=== PATIENT | female | born 1960 | race Caucasian/White ===

== ENCOUNTER 2016-11-14 10:23 | Emergency (ER) | payer OTHER ==
[~2016-11-14] VITALS: Ht 182.9 cm; Wt 102.1 kg
[~2016-11-14 10:23] MED LIST: FLUO15CR2 TP; FOLI1TAB24 PO; INSU100V SQ; INSU100V6 SQ; METH2.5T PO; OXYB5TAB PO; TR1O15 TP
[2016-11-14 11:04] LABS: BASOPHILS % (AUTO) 1 % (0-10); EOSINOPHILS % (AUTO) 2 % (0-10); LYMPHOCYTES # (AUTO) 0.4 X 10^3 (1.0-4.0); LYMPHOCYTES % (AUTO) 21 % (12-44); MEAN CORPUSCULAR HEMOGLOBIN 29 PG (25-34); MEAN CORPUSCULAR HGB CONC 33 G/DL (32-36); MEAN CORPUSCULAR VOLUME 86 FL (80-99); MEAN PLATELET VOLUME 9.3 FL (7.4-10.4); MONOCYTES # (AUTO) 0.1 X 10^3 (0.0-1.0); MONOCYTES % (AUTO) 8 % (0-12); NEUTROPHILS # (AUTO) 1.1 X 10^3 (1.8-7.8); NEUTROPHILS % (AUTO) 68 % (42-75); PLATELET COUNT 52 10^3/uL (130-400); RED BLOOD COUNT 4.35 10^6/uL (4.35-5.85); RED CELL DISTRIBUTION WIDTH 14.4 % (10.0-14.5); WHITE BLOOD COUNT 1.7 10^3/uL (4.3-11.0)
[2016-11-14 11:16] LABS: INR 1.2 (0.8-1.4)
[2016-11-14 11:24] LABS: ALANINE AMINOTRANSFERASE 16 U/L (0-55); ALBUMIN 3.5 G/DL (3.2-4.5); ANION GAP 9 MMOL/L (5-14); ASPARTATE AMINO TRANSFERASE 26 U/L (5-34); BILIRUBIN,TOTAL 1.4 MG/DL (0.1-1.0); BLOOD UREA NITROGEN 9 MG/DL (7-18); BUN/CREATININE RATIO 10; CALCIUM 8.8 MG/DL (8.5-10.1); CARBON DIOXIDE 24 MMOL/L (21-32); CHLORIDE 110 MMOL/L (98-107); CREATININE SERUM 0.92 MG/DL (0.60-1.30); GFR ESTIMATED > 60; GLUCOSE 116 MG/DL (70-105); MAGNESIUM 1.9 MG/DL (1.8-2.4); POTASSIUM 3.6 MMOL/L (3.6-5.0); SODIUM 143 MMOL/L (135-145); TOTAL PROTEIN 6.5 G/DL (6.4-8.2)
[2016-11-14 11:43] LABS: MYOGLOBIN SERUM 43.7 NG/ML (10.0-92.0)
--- NOTE | 2016-11-14 12:08 | Diagnostic Imaging Report ---
EXAM: CHEST 1 VIEW, AP/PA ONLY INDICATION: Weakness. Fatigue. COMPARISON: Chest radiograph 01/06/2016. FINDINGS: Normal heart size and pulmonary vascularity. No focal pulmonary opacity, pleural effusion or pneumothorax. Osseous structures are unremarkable. No significant change. IMPRESSION: Negative chest. Dictated by: Dictated on workstation # [id number]
--- NOTE | 2016-11-14 12:19 | ED Cardiac General ---
History of Present Illness General Chief Complaint: Cardiac/General Problems Stated Complaint: INCREASED HEART RATE, DIZZY Nursing Triage Note: STATES SHE WOKE UP THIS AM WITH A HR OF 200. PT BROUGHT A SERVICE DOG WITH HER. History of Present Illness Time seen by provider: 12:06 Initial Comments Pt woke this morning feeling dizzy and like her heart was racing. She checked her pulse on her phone and she registered at 201 BPM. She has no Hx fo TX or tobacco use. She denies thyroid disorder. she denies alcohol use or COPD. she does have diabetes treated with long and short acting insulin but does not know her latest A1c other than it was high. She states she felt a little clammy and sweaty at the time her heart was racing this morning but it got better after she ate some cookies. She did not check her blood sugar. She has a glucometer. She lives with her children although her memory care physician is in [facility]. She says she is here due to a divorce recently and does have a PCP at [facility]. She denies any nausea or vomiting. She denies chest pain or pressure. She denies hypertension. She denies anyhistory of clots in herlegs or lungs. She also denies shortness of breath. she endorses a history of liver cirrhosis without any history of drinking, IV drug use, hepatitis saying she's recently been tested for this. She is in the middle of a workup for her idiopathic cirrhosis and recently had high bilirubin noted outpatient that was getting better. the patient reports she has chronic low platelets and asked what led to the workup of her liver after a bone marrow biopsy was normal. Her white count being low is also chronic. Allergies and Home Medications Allergies Coded Allergies: Penicillins (Unverified Adverse Reaction, Severe, 01/06/16) WAS TOLD TO NEVER TAKE IT AGAIN Tetanus Vaccines & Toxoid (Unverified Adverse Reaction, Severe, ANAPHYLACTIC REACTION, COULDN'T BREATH, BODY SWOLLEN, 01/06/16) meperidine (Unverified Adverse Reaction, Severe, ANAPHYLAXIS, 01/06/16) HEART STOPPED ET STOPPED BREATHING propofol (Unverified Adverse Reaction, Severe, 01/06/16) STATED TO ANESTHESIOLOGIST THAT HER HEAD WAS ABOUT TO EXPLODE Home Medications Fluocinonide/Emollient Base 15 Gm Cream..g., 15 GM TP, (Reported) Insulin Glargine,Hum.rec.anlog 100 Unit/1 Ml Vial, 180 UNIT SQ HS, (Reported) Insulin Lispro 100 Unit/1 Ml Vial, UNIT SQ, (Reported) Triamcinolone Acet 15 Gm Oint, 15 GM TP, (Reported) Review of Systems Constitutional: see HPI, No chills, No diaphoresis, No fever EENTM: No Eye Pain, No Ear Pain Respiratory: Denies Cough, Denies Shortness of Air, Denies SOA With Exertion, Denies SOA at Rest Cardiovascular: Denies Chest Pain, Denies Edema, Denies Irregular Heart Rate, Lightheadedness, Palpitations Gastrointestinal: Denies Abdomen Distended, Denies Constipated, Denies Diarrhea Genitourinary: Denies Burning, Denies Frequency, Denies Pain Musculoskeletal: No back pain, No joint pain Skin: lesions (psoriasis) Psychiatric/Neurological: See HPI (Bipolar D/O) Endocrine: Denies Excessive Sweating, Denies Flushing Hematologic/Lymphatic: Denies Anemia, Denies Blood Clots Past Mgcnkvs-Jzijnx-Trarmm Hx Patient Social History Alcohol Use: Denies Use Recreational Drug Use: No Smoking Status: Never a Smoker Recent Foreign Travel: No Contact w/Someone Who Travel: No Recent Infectious Disease Expo: No Recent Hopitalizations: No Immunizations Up To Date Tetanus Booster (TDap): Unknown Seasonal Allergies Seasonal Allergies: Yes Surgeries HX Surgeries: Yes (L-ARM (2 YEARS AGO) SURGERY, HEMORHOID, INCONTENENCE) Surgeries: Bladder Surgery, Section, Gallbladder, Hysterectomy Respiratory Hx Respiratory Disorders: Yes Respiratory Disorders: Sleep Apnea Cardiovascular Hx Cardiac Disorders: Yes Cardiac Disorders: Hypertension Neurological Neurological Disorders: Headaches /Migraines 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 System Hx 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 Disorders: Yes [employer] History: Hysterectomy Genitourinary Hx Genitourinary Disorders: Yes (INCONTENENCE) Gastrointestinal Hx Gastrointestinal Disorders: Yes Gastrointestinal Disorders: Gastroesophageal Reflux, Hemorrhoids, Cirrhosis Musculoskeletal Hx Musculoskeletal Disorders: Yes Musculoskeletal Disorders: Arthritis Endocrine Hx Endocrine Disorders: Yes Endocrine Disorders: Diabetes, Insulin dep HEENT HX ENT Disorders: Yes (DOUBLE VISION WITH H/Z) HEENT Disorders: Double Vision Cancer Hx Cancer: No Psychosocial Hx Psychiatric Problems: Yes Behavioral Health Disorders: ADD/ADHD, Anxiety, PTSD, Bipolar Integumentary HX Skin/Integumentary Disorder: Yes Skin/Integumentary Disorders: Psoriasis Blood Transfusions Hx Blood Disorders: No Adverse Reaction to a Blood Tr: No Physical Exam Vital Signs Vital Sign - Last 12Hours 11/14/16 10:39 Temp 98.0 Pulse 70 Resp 16 B/P (MAP) 179/60 Pulse Ox 95 Capillary Refill : Less Than 3 Seconds General Appearance: No Apparent Distress, WD/WN, Anxious HEENT: PERRL/EOMI, Pharynx Normal Neck: Normal Inspection, Non Tender, Supple Respiratory: Chest Non Tender, Lungs Clear, Normal Breath Sounds, No Respiratory Distress Cardiovascular: Regular Rate, Rhythm, No Edema, No Murmur, Normal Peripheral Pulses Gastrointestinal: Normal Bowel Sounds, Non Tender, Soft Extremity: Normal Capillary Refill, Normal Inspection, Non Tender, No Calf Tenderness Neurologic/Psychiatric: Alert, Oriented x3, Normal Mood/Affect Skin: Normal Color, Warm/Dry, Other (psoriatic plaques throughout. No jaundice or icterus.) Lymphatic: No Adenopathy Progress/Results/Core Measures Results/Orders Lab Results Laboratory Tests Test 11/14/16 10:57 Range/Units White Blood Count 1.7 L 4.3-11.0 10^3/uL Red Blood Count 4.35 4.35-5.85 10^6/uL Hemoglobin 12.5 11.5-16.0 G/DL Hematocrit 38 35-52 % Mean Corpuscular Volume 86 80-99 FL Mean Corpuscular Hemoglobin 29 25-34 PG Mean Corpuscular Hemoglobin Concent 33 32-36 G/DL Red Cell Distribution Width 14.4 10.0-14.5 % Platelet Count 52 L 130-400 10^3/uL Mean Platelet Volume 9.3 7.4-10.4 FL Neutrophils (%) (Auto) 68 42-75 % Lymphocytes (%) (Auto) 21 12-44 % Monocytes (%) (Auto) 8 0-12 % Eosinophils (%) (Auto) 2 0-10 % Basophils (%) (Auto) 1 0-10 % Neutrophils # (Auto) 1.1 L 1.8-7.8 X 10^3 Lymphocytes # (Auto) 0.4 L 1.0-4.0 X 10^3 Monocytes # (Auto) 0.1 0.0-1.0 X 10^3 Eosinophils # (Auto) 0.0 0.0-0.3 10^3/uL Basophils # (Auto) 0.0 0.0-0.1 10^3/uL Prothrombin Time 15.0 H 12.2-14.7 SEC INR Comment 1.2 0.8-1.4 Activated Partial Thromboplast Time 30 24-35 SEC Sodium Level 143 135-145 MMOL/L Potassium Level 3.6 3.6-5.0 MMOL/L Chloride Level 110 H 98-107 MMOL/L Carbon Dioxide Level 24 21-32 MMOL/L Anion Gap 9 5-14 MMOL/L Blood Urea Nitrogen 9 7-18 MG/DL Creatinine 0.92 0.60-1.30 MG/DL Estimat Glomerular Filtration Rate > 60 BUN/Creatinine Ratio 10 Glucose Level 116 H 70-105 MG/DL Calcium Level 8.8 8.5-10.1 MG/DL Magnesium Level 1.9 1.8-2.4 MG/DL Total Bilirubin 1.4 H 0.1-1.0 MG/DL Aspartate Amino Transf (AST/SGOT) 26 5-34 U/L Alanine Aminotransferase (ALT/SGPT) 16 0-55 U/L Alkaline Phosphatase 73 40-136 U/L Myoglobin 43.7 10.0-92.0 NG/ML Troponin I < 0.30 <0.30 NG/ML Total Protein 6.5 6.4-8.2 G/DL Albumin 3.5 3.2-4.5 G/DL TSH Bradley Testing 0.79 0.35-4.94 UIU/ML Vital Signs/I&O Vital Sign - Last 12Hours 11/14/16 10:39 Temp 98.0 Pulse 70 Resp 16 B/P (MAP) 179/60 Pulse Ox 95 Blood Pressure Mean: 99 Progress Note : Time: 12:24 Progress Note patient with what could be symptoms of a dysrhythmia or hypoglycemic episode. No convincing history or symptoms for pulmonary embolism or ischemic cardiomyopathy. Initial troponin was normal. She has an outpatient appointment in 2 weeks. She does have elevated bilirubin as well as psoriasis which may explain her pruritus. Her symptoms resolved shortly after eating cookies this morning before arrival. Sugars presently are normal in the 1 teens. We'll sexual abuse counsellor her how to check her sugar daily and get her to follow up outpatient with her primary care physician. We'll also encourage her to set up with a Holter monitor through her PCP's office. She states she's had a heart monitor in the past that didn't show anything. There does not appear to be anything acutely life threatening today. Wells score 0. Heart Score 2. F/U with PCP. ECG Initial ECG Impression Date: Nov 14, 2016 Initial ECG Impression Time: 10:47 Initial ECG Rate: 65 Initial ECG Rhythm: Normal Sinus Initial ECG Intervals: Normal Initial ECG Impression: Normal Initial ECG Comparisson: Unchanged Diagnostic Imaging Diagonstic Imaging: Xray Plain Films/CT/US/NM/MRI: chest Comments No acute cardiopulmonary abnormalities noted. [facility] [place], [place] NAME: EARLE GARG [facility] REC#: [id number] PT STATUS: REG ER : 1960 PHYSICIAN: AMY SHERIFF MD ADMIT DATE: 11/14/16/ER Draft Date of Exam:11/14/16 CHEST 1 VIEW, AP/PA ONLY EXAM: CHEST 1 VIEW, AP/PA ONLY INDICATION: Weakness. Fatigue. COMPARISON: Chest radiograph 01/06/2016. FINDINGS: Normal heart size and pulmonary vascularity. No focal pulmonary opacity, pleural effusion or pneumothorax. Osseous structures are unremarkable. No significant change. IMPRESSION: Negative chest. Dictated on workstation # [id number] Dict: 11/14/16 1201 Trans: 11/14/16 1207 [facility] [id number] Interpreted by: NAA NICHOLS MD Electronically signed by: Reviewed: Reviewed by Me Departure Impression Impression: Primary Impression: Intermittent palpitations Disposition: 01 HOME, SELF-CARE Condition: Stable Departure-Patient Inst. Decision time for Depature: 12:30 Referrals: [facility] (PCP/Family) Primary Care Physician Patient Instructions: Palpitations (DC) Add. Discharge Instructions: The fluttering, fast heart rate you just prescribed this morning could've been caused by many things. it does not appear to be any acute life-threatening event going on today based on the imaging, EKG, blood work we did in the ER. You should follow-up next week with your PCP and consider things like a Holter monitor and further workup and management of your blood sugar. This could also be caused by a hypoglycemic episode. Next time you feel out of sorts you should immediately check your own blood sugar. If you have this or new symptoms you should return to the ER otherwise follow up with her primary care physician. All discharge instructions reviewed with patient and/or family. Voiced understanding. REBA IRELAND Nov 14, 2016 12:19
[2016-11-14 12:49] VITALS: BP 116/68
== END 2016-11-14 12:49 | disposition home or self-care (01) ==
LOC: EDUNIT# 10:23 → ER 10:24
DX: R00.2 Palpitations (principal); I10 Essential (primary) hypertension; E11.9 Type 2 diabetes mellitus without complications; K74.60 Unspecified cirrhosis of liver; Z79.4 Long term (current) use of insulin; Z79.899 Other long term (current) drug therapy
CPT/HCPCS: 36415; 71010; 80053; 83735; 83874; 84443; 84484; 85025; 85610; 85730; 93041

== ENCOUNTER 2017-01-28 09:57 | Emergency (ER) | payer OTHER ==
[~2017-01-28] VITALS: Ht 182.9 cm; Wt 102.1 kg
[2017-01-28] MEDS ORDERED: LINA5TAB PO (10:15)
[2017-01-28] MEDS ORDERED: ALPR0.5T PO (10:15)
[2017-01-28] MEDS ORDERED: PREMARIN VAG (10:15)
[2017-01-28] MEDS ORDERED: ATOR40TA70 PO (10:15)
[2017-01-28] MEDS ORDERED: [UNRECOGNIZED DRUG - OTHER] (10:15)
[2017-01-28] MEDS ORDERED: resperidone (10:18)
[2017-01-28] MEDS ORDERED: FLUO20CA42 PO (10:18)
--- OUTSIDE RECORDS SUMMARY | 2017-01-28 10:39 | XMS REPORT | Continuity of Care Document ---
Author Author [facility] Address Unknown Phone Unavailable Allergies Active Description Code Type Severity Reaction Onset Reported/Identified Relationship to Patient Clinical Status Yes Demerol Drug Allergy N/A N/A 07/05/2014 Yes metformin Drug Allergy N/A N/A 07/05/2014 Yes Penicillins Drug Allergy N/A N/A 07/05/2014 Yes tetanus immune globulin Drug Allergy N/A N/A 07/05/2014 Yes meperidine [id number] Drug Allergy Severe ANAPHYLAXIS 01/06/2016 Yes Penicillins [id number] Drug Allergy Severe N/A 01/06/2016 Yes propofol [id number] Drug Allergy Severe N/A 01/06/2016 Yes Tetanus Vaccines Toxoid [id number] Drug Allergy Severe ANAPHYLACTIC RE 01/06/2016 Yes Tetanus Vaccines and Toxoid [id number] Drug Allergy Severe ANAPHYLACTIC RE 01/06/2016 Medications Problems Date Dx Coded Attending Type Code Diagnosis Diagnosed By 07/05/2014 MANNY PRATT DO 250.00 DIABETES II CONTROLLED (UNCOMPLICATED) 07/05/2014 MANNY PRATT DO 300.4 DYSTHYMIC DISORDER 07/05/2014 MANNY PRATT DO 785.1 PALPITATIONS 07/05/2014 MANNY PRATT DO 250.00 DIABETES II CONTROLLED (UNCOMPLICATED) 07/05/2014 MANNY PRATT DO 300.4 DYSTHYMIC DISORDER 07/05/2014 MANNY PRATT DO 785.1 PALPITATIONS 07/05/2014 MANNY PRATT DO 250.00 DIABETES II CONTROLLED (UNCOMPLICATED) 07/05/2014 MANNY PRATT DO 300.4 DYSTHYMIC DISORDER 07/05/2014 MANNY PRATT DO 785.1 PALPITATIONS 07/05/2014 WHITE DDS, BLU J 250.00 DIABETES II CONTROLLED (UNCOMPLICATED) 07/05/2014 WHITE DDS, BLU J 300.4 DYSTHYMIC DISORDER 07/05/2014 WHITE DDS, BLU J 785.1 PALPITATIONS 07/05/2014 RAQUEL PRATT DOA K 250.00 DIABETES II CONTROLLED (UNCOMPLICATED) 07/05/2014 [place] MANNY K 300.4 DYSTHYMIC DISORDER 07/05/2014 [place] MANNY K 785.1 PALPITATIONS 07/05/2014 JEANNA FERRER 250.00 DIABETES II CONTROLLED (UNCOMPLICATED) 07/05/2014 JEANNA FERRER 300.4 DYSTHYMIC DISORDER 07/05/2014 JEANNA FERRER 785.1 PALPITATIONS 09/10/2014 [place] MANNY K 296.89 MO BIPOLAR II 09/10/2014 [place] MANNY K 300.21 AN PANIC DIS W AGORA 09/10/2014 WHITE DDS, BLU J 296.89 MO BIPOLAR II 09/10/2014 WHITE DDS, BLU J 300.21 AN PANIC DIS W AGORA 09/10/2014 [place] MANNY K 296.89 MO BIPOLAR II 09/10/2014 [place] MANNY K 300.21 AN PANIC DIS W AGORA 09/10/2014 JEANNA FERRER M 296.89 MO BIPOLAR II 09/10/2014 JEANNA FERRER 300.21 AN PANIC DIS W AGORA 10/26/2014 JEANNA FERRER M 296.33 MO DEPRESSIVE RECURRENT SEVERE W/O PSYCHOTIC BEHAVIOR 10/26/2014 JEANNA FERRER M 309.81 AN PTSD 01/06/2016 RODNEY DO, GABRIELLE K Ot E86.0 DEHYDRATION 01/06/2016 RODNEY DO, GABRIELLE K Ot R55 SYNCOPE AND COLLAPSE 01/08/2016 RODNEY DO, GABRIELLE K Ot E86.0 DEHYDRATION 01/08/2016 RODNEY DO, GABRIELLE K Ot R55 SYNCOPE AND COLLAPSE 01/23/2016 RODNEY DO, GABRIELLE K Ot E86.0 DEHYDRATION 01/23/2016 RODNEY DO, GABRIELLE K Ot R55 SYNCOPE AND COLLAPSE 11/14/2016 REBA IRELAND MD Ot E11.9 TYPE 2 DIABETES MELLITUS WITHOUT COMPLIC 11/14/2016 REBA IRELAND MD Ot I10 ESSENTIAL (PRIMARY) HYPERTENSION 11/14/2016 REBA IRELAND MD Ot K74.60 UNSPECIFIED CIRRHOSIS OF LIVER 11/14/2016 REBA IRELAND MD Ot R00.2 PALPITATIONS 11/14/2016 SHU NGUYEN, REBA [place] Ot Z79.4 ADMINISTRATION DEAN (CURRENT) USE OF INSULIN 11/14/2016 SHU NGUYEN, REBA [place] Ot Z79.899 OTHER ADMINISTRATION DEAN (CURRENT) DRUG THERAPY Procedures Code Description [place] [address] A1C (IN-HOUSE) 05451 PSYCH DIAGNOSTIC EVALUATION 09/10/2014 83939 PSYTX PT&/FAMILY 45 MINUTES 10/25/2014 73030 PSYCH DIAG EVAL W/MED SRVCS 11/22/2014 Results Test Result Range Complete blood count (CBC) with automated white blood cell (WBC) differential - 11/14/16 10:57 Blood leukocytes automated count (number/volume) 1.7 10*3/ uL 4.3-11.0 Blood erythrocytes automated count (number/volume) 4.35 10*6 /uL 4.35-5.85 Venous blood hemoglobin measurement (mass/volume) 12.5 g/dL 11.5-16.0 Blood hematocrit (volume fraction) 38 % 35-52 Automated erythrocyte mean corpuscular volume 86 [foz_us] 80-99 Automated erythrocyte mean corpuscular hemoglobin (mass per erythrocyte) 29 pg 25-34 Automated erythrocyte mean corpuscular hemoglobin concentration measurement ( mass/volume) 33 g/dL 32-36 Automated erythrocyte distribution width ratio 14.4 % 10.0-14.5 Automated blood platelet count (count/volume) 52 10*3/uL 130-400 Automated blood platelet mean volume measurement 9.3 [foz_us ] 7.4-10.4 Automated blood neutrophils/100 leukocytes 68 % 42-75 Automated blood lymphocytes/100 leukocytes 21 % 12-44 Blood monocytes/100 leukocytes 8 % 0-12 Automated blood eosinophils/100 leukocytes 2 % 0-10 Automated blood basophils/100 leukocytes 1 % 0-10 Blood neutrophils automated count (number/volume) 1.1 10*3 1.8-7.8 Blood lymphocytes automated count (number/volume) 0.4 10*3 1.0-4.0 Blood monocytes automated count (number/volume) 0.1 10*3 0.0-1.0 Automated eosinophil count 0.0 10*3/uL 0.0-0.3 Automated blood basophil count (count/volume) 0.0 10*3/uL 0.0-0.1 PT panel in platelet poor plasma by coagulation assay - 11/14/16 10:57 Prothrombin time (PT) in platelet poor plasma by coagulation assay 15.0 s 12.2-14.7 INR in platelet poor plasma or blood by coagulation assay 1.2 0.8-1.4 Activated partial thromboplastin time (aPTT) in platelet poor plasma bycoagulation assay - 11/14/16 10:57 Activated partial thromboplastin time (aPTT) in platelet poor plasma bycoagulation assay 30 s 24-35 Comprehensive metabolic panel - 11/14/16 10:57 Serum or plasma sodium measurement (moles/volume) 143 mmol/ L 135-145 Serum or plasma potassium measurement (moles/volume) 3.6 mmol/L 3.6-5.0 Serum or plasma chloride measurement (moles/volume) 110 mmol /L 98-107 Carbon dioxide 24 mmol/L 21-32 Serum or plasma anion gap determination (moles/volume) 9 mmol/L 5-14 Serum or plasma urea nitrogen measurement (mass/volume) 9 mg /dL 7-18 Serum or plasma creatinine measurement (mass/volume) 0.92 mg /dL 0.60-1.30 Serum or plasma urea nitrogen/creatinine mass ratio 10 NRG Serum or plasma creatinine measurement with calculation of estimated glomerular filtration rate > NRG Serum or plasma glucose measurement (mass/volume) 116 mg/dL 70-105 Serum or plasma calcium measurement (mass/volume) 8.8 mg/dL 8.5-10.1 Serum or plasma total bilirubin measurement (mass/volume) 1.4 mg/dL 0.1-1.0 Serum or plasma alkaline phosphatase measurement (enzymatic activity/volume) 73 U/L 40-136 Serum or plasma aspartate aminotransferase measurement (enzymatic activity/ volume) 26 U/L 5-34 Serum or plasma alanine aminotransferase measurement (enzymatic activity/volume ) 16 U/L 0-55 Serum or plasma protein measurement (mass/volume) 6.5 g/dL 6.4-8.2 Serum or plasma albumin measurement (mass/volume) 3.5 g/dL 3.2-4.5 Magnesium - 11/14/16 10:57 Magnesium 1.9 mg/dL 1.8-2.4 Serum or plasma troponin i.cardiac measurement (mass/volume) - 11/14/16 10:57 Serum or plasma troponin i.cardiac measurement (mass/volume) < ng/mL <0.30 Myoglobin, serum - 11/14/16 10:57 Myoglobin, serum 43.7 ng/mL 10.0-92.0 Serum or plasma thyrotropin measurement by detection limit <=0.05 miu/l (units/ volume) - 11/14/16 10:57 Serum or plasma thyrotropin measurement by detection limit <=0.05 miu/l (units/ volume) 0.79 u[iU]/mL 0.35-4.94 Encounters ACCT No. Visit Date/Time Discharge Status Pt. Type Provider Facility Loc./Unit Complaint [id number] 11/05/2014 15:14:00 11/05/2014 23: 59:59 [facility] Outpatient MANNY PRATT DO [id number] 10/26/2014 11:05:00 10/26/2014 23: 59:59 [facility] Outpatient JEANNA FERRER [id number] 10/25/2014 00:00:00 10/25/2014 23: 59:59 [facility] Outpatient BLU ADAIR DDS [id number] 09/10/2014 14:58:00 09/10/2014 23: 59:59 CLS Outpatient MANNY PRATT DO [id number] 08/06/2014 12:44:00 08/06/2014 23: 59:59 [facility] Outpatient MANNY PRATT DO [id number] 07/05/2014 14:41:00 07/05/2014 23: 59:59 [facility] Outpatient MANNY PRATT DO
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
[2017-01-28] MEDS ORDERED: ORPH100T PO (11:39)
[2017-01-28 11:45] VITALS: BP 123/72
== END 2017-01-28 11:48 | disposition home or self-care (01) ==
LOC: EDUNIT# 09:57 → ER 09:59
DX: S33.5XXA Sprain of ligaments of lumbar spine, initial encounter (principal); S13.9XXA Sprain of joints and ligaments of unspecified parts of neck, initial encounter; F41.9 Anxiety disorder, unspecified; F43.10 Post-traumatic stress disorder, unspecified; I10 Essential (primary) hypertension; E11.9 Type 2 diabetes mellitus without complications; K21.9 Gastro-esophageal reflux disease without esophagitis; K74.60 Unspecified cirrhosis of liver; Z79.4 Long term (current) use of insulin; Z79.899 Other long term (current) drug therapy; V43.52XA Car driver injured in collision with other type car in traffic accident, initial encounter
CPT/HCPCS: 72125; 72128; 72131; 99283

== ENCOUNTER → 2017-05-18 | Outpatient (CLI) | payer OTHER ==
[~2017-05-18] MED LIST changes: +ALPR0.5T PO; +ATOR40TA70 PO; +FLUO20CA42 PO; +LINA5TAB PO; +ORPH100T PO; +PREMARIN VAG; +[UNRECOGNIZED DRUG - OTHER]; +resperidone
--- NOTE | 2017-05-18 15:33 | Diagnostic Imaging Report ---
PROCEDURE: MR imaging cervical spine without contrast. TECHNIQUE: Multiplanar, multisequence MR imaging of the cervical spine was performed without contrast. INDICATION: Radicular pain in the right arm. Right shoulder pain. FINDINGS: The alignment of the posterior spinal line is satisfactory. Slight straightening in the upper cervical spine curvature is seen which could be positional or reflective of muscle spasm. The vertebral body heights and disc heights are preserved. There is disc desiccation at all disc levels. The spinal cord has normal caliber, contour and signal. The foramen magnum and upper cervical canal are widely patent. There is normal marrow signal identified in the cervical spine. C2/3: No disc herniation, no spinal canal or foraminal stenosis. C3/4: There is a disc spur complex with no significant spinal canal stenosis. The foramina demonstrate no significant narrowing. C4/5: There is a spur disc complex without spinal canal stenosis. No foraminal narrowing. C5/6: There is a spur disc complex and mild posterior ligamentous hypertrophy. There is minimal spinal canal stenosis at this level with reduced AP dimension of the canal to 9.5 mm. No cord compression. The foramina demonstrate moderate to severe stenosis on the right side and no significant stenosis on the left secondary to uncovertebral and facet hypertrophy. C6-7: There is a spur disc complex and mild posterior ligamentous hypertrophy. No central canal stenosis. No cord compression. The foramina demonstrates mild stenosis bilaterally from uncovertebral joint and minimal facet hypertrophy. C7/T1: No disc herniation, no spinal canal or foraminal stenosis. IMPRESSION: There is moderate to severe right foraminal stenosis at C5/6 level related to uncovertebral and facet hypertrophy. No significant spinal canal stenosis or cord compression at any level. Dictated by: Dictated on workstation # [id number]
== END ==
LOC: RAD 13:38
PROVIDERS: ATTEND Family Medicine
DX: M48.02 Spinal stenosis, cervical region (principal)
CPT/HCPCS: 72141

== ENCOUNTER → 2017-08-27 | Outpatient (CLI) | payer SELFPAY ==
--- NOTE | 2017-08-27 09:06 | Diagnostic Imaging Report ---
INDICATION: Cirrhosis. The liver is enlarged at 19.9 cm. No discrete liver mass is detected. There is increased echogenicity consistent with hepatic steatosis. The portal vein is patent and demonstrates normal direction of flow. Gallbladder is surgically absent. No biliary ductal dilatation is seen although the extra hepatic bile duct is somewhat obscured. Pancreas is poorly visualized. The right kidney is unremarkable. There is no ascites. IMPRESSION: Hepatomegaly and hepatic steatosis. No other significant abnormality is seen. Dictated by: Dictated on workstation # [id number]
== END ==
LOC: RAD 08:02
PROVIDERS: ATTEND Pediatrics
DX: K76.0 Fatty (change of) liver, not elsewhere classified (principal); R16.0 Hepatomegaly, not elsewhere classified; K74.60 Unspecified cirrhosis of liver
CPT/HCPCS: 76705

== ENCOUNTER 2019-02-02 16:04 | Emergency (ER) | payer OTHER ==
[~2019-02-02] VITALS: Ht 182.9 cm; Wt 97.1 kg
[~2019-02-02 16:04] MED LIST changes: -METH2.5T PO; +MTX2.5T PO
--- NOTE | 2019-02-02 16:25 | ED Abdominal Pain ---
General Stated Complaint: ABD PAIN RT SIDE Source of Information: Patient Exam Limitations: No Limitations History of Present Illness Date Seen by Provider: Feb 02, 2019 Time Seen by Provider: 16:20 Initial Comments 58-year-old female who presents to the emergency room with complaints of right sided abdominal pain that she has had for the past 6 months after being told that she had a kidney stone in her right ureter was too large to pass. She is waiting for her platelet count to be high enough to have the procedure to remove it. 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 She reports the pain has become worse the last 2 days causing nausea and vomiting. She has also noticed blood in her urine for the past 3 days. Location: RUQ, Flank Associated Symptoms: Nausea/Vomiting Allergies and Home Medications Allergies Coded Allergies: Penicillins (Unverified Adverse Reaction, Severe, 01/06/16) WAS TOLD TO NEVER TAKE IT AGAIN Tetanus Vaccines and Toxoid (Unverified Adverse Reaction, Severe, ANAPHYLACTIC REACTION, COULDN'T BREATH, BODY SWOLLEN, 01/06/16) meperidine (Unverified Adverse Reaction, Severe, ANAPHYLAXIS, 01/06/16) HEART STOPPED ET STOPPED BREATHING Home Medications Cephalexin 500 Mg Tablet, 500 MG PO QID Prescribed by: WALLY JUAREZ on 02/02/19 1822 Insulin Glargine,Hum.rec.anlog 100 Unit/1 Ml Vial, 180 UNIT SQ HS, (Reported) Orphenadrine Citrate 100 Mg Tablet.er, 100 MG PO BID FOR MUSCLE SPASMS Prescribed by: GABRIELLE STEVENS on 01/28/17 1139 Patient Home Medication List Home Medication List Reviewed: Yes Review of Systems Review of Systems Constitutional: see HPI; No chills, No fever Gastrointestinal: See HPI, Abdominal Pain, Nausea Genitourinary: See HPI, Flank Pain All Other Systems Reviewed Negative Unless Noted: Yes Past Wctzdor-Zehkjw-Gduelo Hx Past Med/Social Hx: Reviewed Nursing Past Med/Soc Hx Patient Social History Recent Foreign Travel: No Contact w/Someone Who Travel: No Recent Hopitalizations: No Immunizations Up To Date Tetanus Booster (TDap): Unknown Seasonal Allergies Seasonal Allergies: Yes Past Medical History Surgeries: Yes (L-ARM (2 YEARS AGO) SURGERY, HEMORHOID, INCONTENENCE) Bladder Surgery, Section, Gallbladder, Hysterectomy Respiratory: Yes Sleep Apnea Currently Using CPAP: Yes Cardiac: Yes Hypertension Headaches /Migraines 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 Gastrointestinal: Yes Gastroesophageal Reflux, Liver Disease/Jaundice, Hemorrhoids, Cirrhosis Musculoskeletal: Yes Arthritis Endocrine: Yes Diabetes, Insulin dep Double Vision Cancer: No Psychosocial: Yes ADD/ADHD, Anxiety, PTSD, Bipolar, Depression Integumentary: Yes Psoriasis Blood Disorders: No Adverse Reaction/Blood Tranf: No Family Medical History Reviewed Nursing Family Hx Physical Exam Vital Signs Vital Signs - First Documented 02/02/19 16:10 Temp 97.8 Pulse 96 Resp 16 B/P (MAP) 141/83 (102) Pulse Ox 94 O2 Delivery Room Air Capillary Refill : Height/Weight/BMI Height: 6'" Weight: 225lbs. oz. [id number]; BMI Method:Stated General Appearance: WD/WN, no apparent distress Respiratory: chest non-tender, lungs clear, normal breath sounds, no respiratory distress, no accessory muscle use Cardiovascular: normal peripheral pulses, regular rate, rhythm, no edema, no gallop, no JVD, no murmur Gastrointestinal: normal bowel sounds, non tender, soft, no organomegaly, no pulsatile mass Extremities: normal capillary refill Neurologic/Psychiatric: alert, normal mood/affect, oriented x 3 Skin: normal color, warm/dry Progress/Results/Core Measures Results/Orders Lab Results Laboratory Tests Test 02/02/19 16:17 02/02/19 16:20 Range/Units White Blood Count 2.8 L 4.3-11.0 10^3/uL Red Blood Count 5.06 4.35-5.85 10^6/uL Hemoglobin 14.7 11.5-16.0 G/DL Hematocrit 42 35-52 % Mean Corpuscular Volume 82 80-99 FL Mean Corpuscular Hemoglobin 29 25-34 PG Mean Corpuscular Hemoglobin Concent 35 32-36 G/DL Red Cell Distribution Width 14.9 H 10.0-14.5 % Platelet Count 58 L 130-400 10^3/uL Mean Platelet Volume 10.6 H 7.4-10.4 FL Neutrophils (%) (Auto) 75 42-75 % Lymphocytes (%) (Auto) 18 12-44 % Monocytes (%) (Auto) 6 0-12 % Eosinophils (%) (Auto) 1 0-10 % Basophils (%) (Auto) 0 0-10 % Neutrophils # (Auto) 2.1 1.8-7.8 X 10^3 Lymphocytes # (Auto) 0.5 L 1.0-4.0 X 10^3 Monocytes # (Auto) 0.2 0.0-1.0 X 10^3 Eosinophils # (Auto) 0.0 0.0-0.3 10^3/uL Basophils # (Auto) 0.0 0.0-0.1 10^3/uL Sodium Level 137 135-145 MMOL/L Potassium Level 4.4 3.6-5.0 MMOL/L Chloride Level 105 98-107 MMOL/L Carbon Dioxide Level 21 21-32 MMOL/L Anion Gap 11 5-14 MMOL/L Blood Urea Nitrogen 9 7-18 MG/DL Creatinine 1.15 0.60-1.30 MG/DL Estimat Glomerular Filtration Rate 49 BUN/Creatinine Ratio 8 Glucose Level 263 H 70-105 MG/DL Calcium Level 9.8 8.5-10.1 MG/DL Corrected Calcium 9.7 8.5-10.1 MG/DL Total Bilirubin 2.3 H 0.1-1.0 MG/DL Aspartate Amino Transf (AST/SGOT) 23 5-34 U/L Alanine Aminotransferase (ALT/SGPT) 20 0-55 U/L Alkaline Phosphatase 90 40-136 U/L Total Protein 7.5 6.4-8.2 GM/DL Albumin 4.1 3.2-4.5 GM/DL Amylase Level 66 25-125 U/L Lipase 55 8-78 U/L Urine Color YOVANI H Urine Clarity VERY CLOUDY H Urine pH 5 5-9 Urine Specific [place] 1.025 H 1.016-1.022 Urine Protein 3+ H NEGATIVE Urine Glucose (UA) 2+ H NEGATIVE Urine Ketones NEGATIVE NEGATIVE Urine Nitrite NEGATIVE NEGATIVE Urine Bilirubin 1+ H NEGATIVE Urine Urobilinogen NORMAL NORMAL MG/DL Urine Leukocyte Esterase 3+ H NEGATIVE Urine RBC (Auto) 5+ H NEGATIVE Urine RBC 25-50 H /HPF Urine WBC 50-100 H /HPF Urine Squamous Epithelial Cells 5-10 /HPF Urine Crystals NONE /LPF Urine Bacteria MODERATE H /HPF Urine Casts NONE /LPF Urine Mucus NEGATIVE /LPF Urine Culture Indicated YES Micro Results Microbiology 02/02/19 Urine Culture - Final, Complete 3 or more isolates My Orders Orders - WALLY JUAREZ Lipase (02/02/19 16:18) Amylase (02/02/19 16:18) Ed Iv/Invasive Line Start (02/02/19 16:18) Ct Abd/Pelvis Wo(Kidney Stone) (02/02/19 16:18) Abdomen/Kub [place] (02/02/19 16:18) Ceftriaxone For Iv Use (Rocephin For I (02/02/19 18:00) Fentanyl Injection (Sublimaze Injection (02/02/19 18:45) Fentanyl Injection (Sublimaze Injection (02/02/19 18:32) Ondansetron Injection (Zofran Injectio (02/02/19 19:00) Medications Given in ED Vital Signs/I&O 02/02/19 02/02/19 16:10 18:59 Temp 97.8 97.8 Pulse 96 87 Resp 16 16 B/P (MAP) 141/83 (102) 136/80 (98) Pulse Ox 94 97 O2 Delivery Room Air Room Air Departure Impression Primary Impression: Calculus of kidney Additional Impression: Urinary tract infection Disposition: 01 HOME, SELF-CARE Condition: Stable/Unchanged Departure-Patient Inst. Decision time for Depature: 18:18 Referrals: DONY BATISTA MD (PCP/Family) Primary Care Physician Patient Instructions: Kidney Stones (DC), Urinary Tract Infection, Adult (DC) Add. Discharge Instructions: Keep your follow-up appointment as scheduled with Dr. Batista to have the stones removed. Take antibiotics as directed. Drink plenty of fluids to stay hydrated. Return back to the emergency room for worsening symptoms or concerns as needed. Scripts Cephalexin (Cephalexin) 500 Mg Tablet 500 MG PO QID for 7 Days, #28 TAB 0 Refills Prov: WALLY JUAREZ 02/02/19 WALLY JUAREZ Feb 02, 2019 16:25
[2019-02-02 16:27] LABS: BASOPHILS % (AUTO) 0 % (0-10); EOSINOPHILS % (AUTO) 1 % (0-10); HEMATOCRIT 42 % (35-52); HEMOGLOBIN 14.7 G/DL (11.5-16.0); LYMPHOCYTES # (AUTO) 0.5 X 10^3 (1.0-4.0); LYMPHOCYTES % (AUTO) 18 % (12-44); MEAN CORPUSCULAR HEMOGLOBIN 29 PG (25-34); MEAN CORPUSCULAR HGB CONC 35 G/DL (32-36); MEAN CORPUSCULAR VOLUME 82 FL (80-99); MEAN PLATELET VOLUME 10.6 FL (7.4-10.4); MONOCYTES # (AUTO) 0.2 X 10^3 (0.0-1.0); MONOCYTES % (AUTO) 6 % (0-12); NEUTROPHILS # (AUTO) 2.1 X 10^3 (1.8-7.8); NEUTROPHILS % (AUTO) 75 % (42-75); RED CELL DISTRIBUTION WIDTH 14.9 % (10.0-14.5); WHITE BLOOD COUNT 2.8 10^3/uL (4.3-11.0)
[2019-02-02 16:31] LABS: CLARITY,URINE VERY CLOUDY; COLOR,URINE AMBER; GLUCOSE, URINE (UA) 2+ (NEGATIVE); KETONES,URINE NEGATIVE (NEGATIVE); LEUKOCYTE ESTERASE ,URINE 3+ (NEGATIVE); NITRITE,URINE NEGATIVE (NEGATIVE); PH,URINE 5 (5-9); PROTEIN,URINE 3+ (NEGATIVE); UROBILINOGEN,URINE NORMAL (NORMAL)
[2019-02-02 16:39] LABS: BILIRUBIN,URINE 1+ (NEGATIVE)
[2019-02-02 16:40] LABS: BACTERIA,URINE MODERATE /HPF; RBC,URINE 25-50 /HPF; WBC,URINE 50-100 /HPF
[2019-02-02 16:41] LABS: PLATELET COUNT 58 10^3/uL (130-400)
[2019-02-02 16:58] LABS: ALBUMIN 4.1 GM/DL (3.2-4.5); AMYLASE 66 U/L (25-125); BILIRUBIN,TOTAL 2.3 MG/DL (0.1-1.0); CALCIUM 9.8 MG/DL (8.5-10.1); CREATININE SERUM 1.15 MG/DL (0.60-1.30); LIPASE 55 U/L (8-78); POTASSIUM 4.4 MMOL/L (3.6-5.0); TOTAL PROTEIN 7.5 GM/DL (6.4-8.2)
--- NOTE | 2019-02-02 17:12 | Diagnostic Imaging Report ---
PROCEDURE: CT urinary tract, rule out kidney stone. TECHNIQUE: Multiple contiguous axial images were obtained through the abdomen and pelvis without the use of intravenous contrast. Auto Exposure Controls were utilized during the CT exam to meet ALARA standards for radiation dose reduction. INDICATION: None available. FINDINGS: There is subsegmental atelectasis in the lung bases. No pleural effusion. Visualized heart is normal in size. There is mild hepatomegaly. No focal hepatic lesion is demonstrated. The pancreas and adrenal glands are unremarkable. Gallbladder is surgically absent. There is no intrahepatic or extrahepatic biliary ductal dilatation. There is marked splenomegaly, with splenic length measuring approximately 21 cm. There is a coarse 10 mm calcification in the upper pole of the right kidney. This appears to be located in the cortex. There are punctate nonobstructing calyceal calculi in the lower pole of the right kidney. There is no renal calculus on the left. There is no hydronephrosis on either side. The visualized ureters are normal. There is moderate distention of stomach. Small bowel and colon are normal in course and caliber, without evidence of wall thickening or obstruction. There is no pneumoperitoneum, abdominal free fluid, or loculated collection. The appendix is normal. The aorta is nonaneurysmal. There is no lymphadenopathy. There is recanalization of the umbilical vein. The bladder is decompressed and not well evaluated. The uterus is surgically absent. No pelvic free fluid or adnexal masses are appreciated. Scattered foci of increased attenuation and focal gas in the right inferior abdominal wall likely reflect recent subcutaneous injections. No acute osseous abnormalities appreciated. IMPRESSION: There is a coarse calcification in the region of the upper pole of the right kidney. This may reflect a parenchymal calcification or nonobstructing renal calculus. Additional nonobstructing calculi are demonstrated in the lower pole of the right kidney. There is no hydronephrosis on either side. Hepatosplenomegaly and recanalization of the umbilical vein, likely reflecting chronic liver disease. No focal hepatic lesion is demonstrated. Dictated by: Dictated on workstation # [id number]
--- NOTE | 2019-02-02 17:17 | Diagnostic Imaging Report ---
INDICATION: Right side abdominal pain. TIME OF EXAM: 4:45 p.m. EXAMINATION: Single view of the abdomen was obtained. FINDINGS: Surgical clips in the right upper quadrant are noted. Calcific density in the right abdomen overlies the upper pole of the right kidney. Bowel gas pattern is unremarkable. Spleen does appear to be enlarged extending to the left iliac crest. IMPRESSION: 1. Probable right renal calcification. 2. Splenomegaly. Dictated by: Dictated on workstation # [id number]
[2019-02-02] MEDS ORDERED: cefTRIAXone FOR IV USE 1,000 MG in WATER (STERILE) FOR INJECTION 10 ML IV ONE (18:00)
[2019-02-02] MEDS ORDERED: CEPH500T PO (18:22)
[2019-02-02] MEDS ORDERED: fentaNYL INJECTION 100 MCG/2 ML AMP ONE (18:32)
[2019-02-02] MEDS ORDERED: fentaNYL INJECTION 100 MCG/2 ML AMP IVP ONE (18:45)
[2019-02-02 18:59] VITALS: BP 136/80
[2019-02-02] MEDS ORDERED: ONDANSETRON 4 MG/2 ML (SDV) Z0FRAN IVP ONE (19:00)
== END 2019-02-02 19:03 | disposition home or self-care (01) ==
LOC: EDUNIT# 16:04 → ER 16:06
DX: N20.0 Calculus of kidney (principal); N39.0 Urinary tract infection, site not specified; G47.30 Sleep apnea, unspecified; I10 Essential (primary) hypertension; G43.909 Migraine, unspecified, not intractable, without status migrainosus; K21.9 Gastro-esophageal reflux disease without esophagitis; E11.9 Type 2 diabetes mellitus without complications; F43.10 Post-traumatic stress disorder, unspecified; F31.9 Bipolar disorder, unspecified; F90.9 Attention-deficit hyperactivity disorder, unspecified type; F41.9 Anxiety disorder, unspecified; Z88.0 Allergy status to penicillin; Z88.7 Allergy status to serum and vaccine; Z88.5 Allergy status to narcotic agent; Z79.4 Long term (current) use of insulin; Z90.710 Acquired absence of both cervix and uterus
CPT/HCPCS: 36415; 74018; 74176; 80053; 81000; 82150; 83690; 85025; 87088; 96365; 96375

== ENCOUNTER → 2019-02-07 | Outpatient (CLI) | payer OTHER ==
[~2019-02-07] MED LIST changes: +CEPH500T PO
--- NOTE | 2019-02-07 15:33 | Diagnostic Imaging Report ---
INDICATION: Right-sided pain and kidney stone. TIME OF EXAMINATION: 2:00 PM. COMPARISON: 02/02/2019. FINDINGS: The right-sided abdominal calcification is again noted. There are surgical clips in the right abdomen. Splenomegaly is again seen. The bowel gas pattern is unremarkable. IMPRESSION: Stable KUB since the exam of 5 days earlier. Dictated by: Dictated on workstation # [id number]
== END ==
LOC: RAD 13:35
PROVIDERS: ATTEND Urology
DX: N20.0 Calculus of kidney (principal); Z98.890 Other specified postprocedural states
CPT/HCPCS: 74018

== ENCOUNTER → 2020-01-09 | Outpatient (CLI) | payer OTHER ==
[~2020-01-09] MED LIST changes: +CATHETER FLUSH 10 ML SYR IV PRN; +HOLD METFORMIN - RECEIVED CONTRAST 20 ML VIAL IV SCH; +IOHEXOL 350 MG/ML 100 ML (OMNIPAQUE 350) VIAL IV ONE; +NS 100 ML (IVPB) BAG IV ONE; +OXYB-52 PO; -OXYB5TAB PO
[2020-01-09 10:55] LABS: BUN/CREATININE RATIO 15; CREATININE SERUM 0.85 MG/DL (0.60-1.30); GFR ESTIMATED > 60
--- NOTE | 2020-01-09 13:43 | Diagnostic Imaging Report ---
PROCEDURE: CT abdomen and pelvis with and without contrast. TECHNIQUE: Precontrast acquisitions were acquired through the abdomen and pelvis. Multiple contiguous axial images were obtained through the abdomen and pelvis after the administration of intravenous contrast. Auto Exposure Controls were utilized during the CT exam to meet ALARA standards for radiation dose reduction. DATE: January 09, 2020. COMPARISON: KUB February 07, 2019. CT abdomen pelvis February 02, 2019. INDICATION: 59-year-old female, gross hematuria. Right-sided abdominal pain. FINDINGS: There are mild linear opacities in the right lower lobe, consistent with a very mild atelectasis. The heart is not enlarged. There is no pericardial effusion. The outer liver contours are not nodular. There is a recannulized paraumbilical vein and dilated collateral vessels in the anterior abdomen as well as splenomegaly. The spleen measures 20.1 cm in craniocaudal dimension, consistent with severe splenomegaly. These findings are consistent with portal hypertension. There is no identified focal liver lesion. The gallbladder is surgically absent. There is no intrahepatic or extrahepatic bile duct dilation. The pancreatic parenchyma is unremarkable. The adrenal glands are unremarkable. There is a right renal calcification on axial image 23 which measures 8 mm in size. There is no concerning renal mass. The urinary collecting systems are not abnormally dilated. There is no identified ureteral stone. The urinary bladder is unremarkable. There is no identified urothelial filling defect. The urinary bladder is grossly unremarkable in appearance. The intestinal tract is not distended. There is no evidence to suggest acute appendicitis. The appendix is best seen on axial image 63 and adjacent sequential images. There is no free intraperitoneal air. There is no drainable fluid collection. There is no sizable volume free pelvic fluid or ascites. There are mild atherosclerotic calcifications noted. There is no identified abnormally enlarged lymph node in the abdomen or pelvis which meets CT size criteria for adenopathy. There is no identified acute bony abnormality. There are disc degenerative changes at L5-S1. IMPRESSION: 1. Findings compatible with portal hypertension with severe splenomegaly and recannulized paraumbilical vein and collateral vessels in the anterior abdominal wall subcutaneous tissues. 2. No sizable volume ascites. 3. Nonobstructing 8 mm right renal stone versus benign parenchymal calcification. No identified ureteral stone or hydronephrosis. 4. No identified concerning renal mass, urothelial filling defect, or abnormal urinary bladder wall thickening. Dictated by: Dictated on workstation # [id number]
== END ==
LOC: RAD 10:01
PROVIDERS: ATTEND Urology
DX: N20.0 Calculus of kidney (principal); N39.0 Urinary tract infection, site not specified
CPT/HCPCS: 36415; 74178; 82565; 84520

== ENCOUNTER 2020-01-16 18:00 | Emergency (ER) | payer OTHER ==
[~2020-01-16] VITALS: Ht 152.4 cm; Wt 99.7 kg
[~2020-01-16 18:00] MED LIST changes: -CATHETER FLUSH 10 ML SYR IV PRN; -HOLD METFORMIN - RECEIVED CONTRAST 20 ML VIAL IV SCH; -IOHEXOL 350 MG/ML 100 ML (OMNIPAQUE 350) VIAL IV ONE; -NS 100 ML (IVPB) BAG IV ONE
[2020-01-16] MEDS ORDERED: LACTATED RINGERS 1,000 ML IV STA (18:44)
[2020-01-16] MEDS ORDERED: fentaNYL INJECTION 100 MCG/2 ML AMP IVP STA (18:44)
[2020-01-16] MEDS ORDERED: KETOROLAC 30 MG/ML VIAL IVP STA (18:44)
[2020-01-16 18:49] LABS: CLARITY,URINE TURBID; COLOR,URINE AMBER; GLUCOSE, URINE (UA) 2+ (NEGATIVE); KETONES,URINE NEGATIVE (NEGATIVE); LEUKOCYTE ESTERASE ,URINE 1+ (NEGATIVE); NITRITE,URINE NEGATIVE (NEGATIVE); PH,URINE 6.5 (5-9); PROTEIN,URINE 3+ (NEGATIVE)
[2020-01-16 18:51] LABS: BASOPHILS % (AUTO) 0 % (0-10); EOSINOPHILS % (AUTO) 0 % (0-10); HEMATOCRIT 40 % (35-52); HEMOGLOBIN 14.2 G/DL (11.5-16.0); LYMPHOCYTES # (AUTO) 0.8 X 10^3 (1.0-4.0); LYMPHOCYTES % (AUTO) 17 % (12-44); MEAN CORPUSCULAR HEMOGLOBIN 31 PG (25-34); MEAN CORPUSCULAR HGB CONC 36 G/DL (32-36); MEAN CORPUSCULAR VOLUME 86 FL (80-99); MEAN PLATELET VOLUME 10.2 FL (7.4-10.4); MONOCYTES # (AUTO) 0.2 X 10^3 (0.0-1.0); MONOCYTES % (AUTO) 5 % (0-12); NEUTROPHILS # (AUTO) 3.6 X 10^3 (1.8-7.8); NEUTROPHILS % (AUTO) 78 % (42-75); PLATELET COUNT 61 10^3/uL (130-400); RED CELL DISTRIBUTION WIDTH 14.3 % (10.0-14.5); WHITE BLOOD COUNT 4.7 10^3/uL (4.3-11.0)
[2020-01-16 18:56] LABS: BILIRUBIN,URINE 1+ (NEGATIVE)
[2020-01-16 19:00] LABS: BACTERIA,URINE NEGATIVE /HPF; RBC,URINE TNTC /HPF
[2020-01-16 19:05] LABS: ALBUMIN 3.9 GM/DL (3.2-4.5); BILIRUBIN,TOTAL 3.4 MG/DL (0.1-1.0); CALCIUM 9.1 MG/DL (8.5-10.1); CREATININE SERUM 1.2 MG/DL (0.60-1.30); POTASSIUM 3.7 MMOL/L (3.6-5.0); TOTAL PROTEIN 7.2 GM/DL (6.4-8.2)
--- NOTE | 2020-01-16 19:22 | Diagnostic Imaging Report ---
Indication: A right ureteral stent placed yesterday. Patient is having bladder pressure. Time of exam 7:11 PM Correlation is made with prior abdominal radiograph from 02/07/2019. A right sided double-J nephroureteral stent is noted. Overall positioning appears to be appropriate. There is a tiny calcification along the distal aspect of the stent. No other calculi along the course of the stent are identified. Bowel gas pattern is unremarkable. There is moderate stool in the right colon. IMPRESSION: 1. Right sided double J nephroureteral stent with probable small distal right ureteric calculus. No other abnormality is seen. Dictated by: Dictated on workstation # [id number]
--- NOTE | 2020-01-16 19:38 | ED GU-Female ---
General Chief Complaint: - Urinary Stated Complaint: S/P KIDNEY SX FEELS THE STENT Nursing Triage Note: pt amb to rm 5 with complaint of right kidney pain and blood in urine. states she had a stent placed yesterday by dr david at yesterday. was told to pull stent out on . stent has a string like a tampon. states feels that stent has moved and has more pain today then she did yesterday after surgery. Nursing Sepsis Screen: No Definite Risk Source: patient Exam Limitations: no limitations History of Present Illness Date Seen by Provider: Jan 16, 2020 Time Seen by Provider: 18:35 Initial Comments Here with report of right kidney pain and blood in her urine. She had stent placed yesterday at and noticed that the string move down some and was worried that this May be, now. Denies fever or chills. Denies nausea or vomiting. Is taking her meds as prescribed. Timing/Duration: this afternoon Severity/Quality: mild Location: right flank, urethral Radiation: none Activities at Onset: none Modifying Factors: Improves With Resting; Worsens With Urinating Associated Symptoms: No abdominal pain, No fever/chills, No nausea/vomiting, No urinary frequency Allergies and Home Medications Allergies Coded Allergies: Penicillins (Unverified Adverse Reaction, Severe, 01/06/16) WAS TOLD TO NEVER TAKE IT AGAIN Tetanus Vaccines and Toxoid (Unverified Adverse Reaction, Severe, ANAPHYLACTIC REACTION, COULDN'T BREATH, BODY SWOLLEN, 01/06/16) meperidine (Unverified Adverse Reaction, Severe, ANAPHYLAXIS, 01/06/16) HEART STOPPED ET STOPPED BREATHING Home Medications Cephalexin 500 Mg Tablet, 500 MG PO QID Prescribed by: WALLY JUAREZ on 02/02/191821 Insulin Glargine,Hum.rec.anlog 100 Unit/1 Ml Vial, 180 UNIT SQ HS, (Reported) Orphenadrine Citrate 100 Mg Tablet.er, 100 MG PO BID FOR MUSCLE SPASMS Prescribed by: GABRIELLE STEVENS on 01/28/17 1139 Patient Home Medication List Home Medication List Reviewed: Yes Review of Systems Review of Systems Constitutional: see HPI; No chills, No fever EENTM: no symptoms reported Respiratory: no symptoms reported Cardiovascular: no symptoms reported Gastrointestinal: see HPI; No nausea, No vomiting Genitourinary: see HPI Psychiatric/Neurological: No Symptoms Reported Past Nvbgzpe-Mqoluu-Njmrhf Hx Past Med/Social Hx: Reviewed Nursing Past Med/Soc Hx Patient Social History Alcohol Use: Denies Use Recreational Drug Use: No Smoking Status: Never a Smoker Recent Foreign Travel: No Contact w/Someone Who Travel: No Recent Infectious Disease Expo: No Recent Hopitalizations: No Immunizations Up To Date Tetanus Booster (TDap): Unknown Seasonal Allergies Seasonal Allergies: Yes Past Medical History Surgeries: Yes (L-ARM (2 YEARS AGO) SURGERY, HEMORHOID, INCONTENENCE) Bladder Surgery, Section, Gallbladder, Hysterectomy Respiratory: Yes Sleep Apnea Currently Using CPAP: Yes Cardiac: Yes Hypertension Neurological: Yes Headaches /Migraines 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 Gastrointestinal: Yes Gastroesophageal Reflux, Liver Disease/Jaundice, Hemorrhoids, Cirrhosis Musculoskeletal: Yes Arthritis Endocrine: Yes Diabetes, Insulin dep Double Vision Cancer: No Psychosocial: Yes ADD/ADHD, Anxiety, PTSD, Bipolar, Depression Integumentary: Yes Psoriasis Blood Disorders: No Adverse Reaction/Blood Tranf: No Family Medical History Reviewed Nursing Family Hx Physical Exam Vital Signs Vital Signs - First Documented 01/16/20 18:22 Temp 37.4 Pulse 69 Resp 20 B/P (MAP) 126/75 (92) Pulse Ox 93 O2 Delivery Room Air Capillary Refill : Less Than 3 Seconds Height, Weight, BMI Height: 6'0" Weight: 214lbs. oz. 97.031885qo; 42.00 BMI Method:Stated General Appearance: WD/WN, no apparent distress Neck: full range of motion, supple Cardiovascular: regular rate, rhythm, no murmur Respiratory: lungs clear, normal breath sounds Gastrointestinal: non tender, soft Back: no CVA tenderness, no vertebral tenderness Neurologic/Psychiatric: alert, oriented x 3 Skin: normal color, warm/dry Progress/Results/Core Measures Suspected Sepsis Recent Fever Within 48 Hours: No Infection Criteria Present: None New/Unexplained Altered Menta: No Sepsis Screen: No Definite Risk SIRS Temperature: Pulse: 69 Respiratory Rate: 20 Laboratory Tests 01/16/20 18:29: White Blood Count 4.7 Blood Pressure 126 /75 Mean: 92 Laboratory Tests 01/16/20 18:29: Creatinine 1.20, Platelet Count 61L, Total Bilirubin 3.4H Results/Orders Lab Results Laboratory Tests Test 01/16/20 18:29 Range/Units White Blood Count 4.7 4.3-11.0 10^3/uL Red Blood Count 4.65 4.35-5.85 10^6/uL Hemoglobin 14.2 11.5-16.0 G/DL Hematocrit 40 35-52 % Mean Corpuscular Volume 86 80-99 FL Mean Corpuscular Hemoglobin 31 25-34 PG Mean Corpuscular Hemoglobin Concent 36 32-36 G/DL Red Cell Distribution Width 14.3 10.0-14.5 % Platelet Count 61 L 130-400 10^3/uL Mean Platelet Volume 10.2 7.4-10.4 FL Neutrophils (%) (Auto) 78 H 42-75 % Lymphocytes (%) (Auto) 17 12-44 % Monocytes (%) (Auto) 5 0-12 % Eosinophils (%) (Auto) 0 0-10 % Basophils (%) (Auto) 0 0-10 % Neutrophils # (Auto) 3.6 1.8-7.8 X 10^3 Lymphocytes # (Auto) 0.8 L 1.0-4.0 X 10^3 Monocytes # (Auto) 0.2 0.0-1.0 X 10^3 Eosinophils # (Auto) 0.0 0.0-0.3 10^3/uL Basophils # (Auto) 0.0 0.0-0.1 10^3/uL Urine Color YOVANI H Urine Clarity TURBID Urine pH 6.5 5-9 Urine Specific Franklin >=1.030 1.016-1.022 Urine Protein 3+ H NEGATIVE Urine Glucose (UA) 2+ H NEGATIVE Urine Ketones NEGATIVE NEGATIVE Urine Nitrite NEGATIVE NEGATIVE Urine Bilirubin 1+ H NEGATIVE Urine Urobilinogen 2.0 < = 1.0 MG/DL Urine Leukocyte Esterase 1+ H NEGATIVE Urine RBC (Auto) 3+ H NEGATIVE Urine RBC TNTC H /HPF Urine WBC 5-10 H /HPF Urine Squamous Epithelial Cells NONE /HPF Urine Crystals NONE /LPF Urine Bacteria NEGATIVE /HPF Urine Casts NONE /LPF Urine Mucus NEGATIVE /LPF Urine Culture Indicated YES Sodium Level 139 135-145 MMOL/L Potassium Level 3.7 3.6-5.0 MMOL/L Chloride Level 105 98-107 MMOL/L Carbon Dioxide Level 26 21-32 MMOL/L Anion Gap 8 5-14 MMOL/L Blood Urea Nitrogen 19 H 7-18 MG/DL Creatinine 1.20 0.60-1.30 MG/DL Estimat Glomerular Filtration Rate 46 BUN/Creatinine Ratio 16 Glucose Level 248 H 70-105 MG/DL Calcium Level 9.1 8.5-10.1 MG/DL Corrected Calcium 9.2 8.5-10.1 MG/DL Total Bilirubin 3.4 H 0.1-1.0 MG/DL Aspartate Amino Transf (AST/SGOT) 23 5-34 U/L Alanine Aminotransferase (ALT/SGPT) 19 0-55 U/L Alkaline Phosphatase 63 40-136 U/L C-Reactive Protein High Sensitivity 0.06 0.00-0.50 MG/DL Total Protein 7.2 6.4-8.2 GM/DL Albumin 3.9 3.2-4.5 GM/DL My Orders Orders - JILLIAN PORTER MD Cbc With Automated Diff (01/16/20 18:44) Comprehensive Metabolic Panel (01/16/20 18:44) Hs C Reactive Protein (01/16/20 18:44) Ua Culture If Indicated (01/16/20 18:44) Fentanyl Injection (Sublimaze Injection (01/16/20 18:44) Ketorolac Injection (Toradol Injection) (01/16/20 18:44) Lactated Ringers (Lr 1000 Ml Iv Solution (01/16/20 18:44) Ed Iv/Invasive Line Start (01/16/20 18:44) Abdomen/Kub 1view (01/16/20 18:44) Urine Culture (01/16/20 18:29) Vital Signs/I&O 01/16/20 18:22 Temp 37.4 Pulse 69 Resp 20 B/P (MAP) 126/75 (92) Pulse Ox 93 O2 Delivery Room Air Capillary Refill : Less Than 3 Seconds Blood Pressure Mean: 92 Progress Note : Progress Note Seen and evaluated. IV, labs, UA, fentanyl 50 g IV, Toradol 30 mg IV and LR 1 L bolus. We will get a KUB. Monitor patient. 1938: Labs reviewed and x-ray reviewed. No concerning findings currently. She does have blood in urine but that would be expected. Your medicines. She is more comfortable now. Discharged home with return precautions. Patient verbalize understanding instructions and agreement with plan. She will call her urologist tomorrow. Diagnostic Imaging Diagonstic Imaging: Xray Plain Films/CT/US/NM/MRI: abdomen Comments [facility]. [place], [place] NAME: EARLE GARG [facility] REC#: [id number] PT STATUS: REG ER : 1960 PHYSICIAN: JILLIAN PORTER MD ADMIT DATE: 01/16/20/ER Draft Date of Exam:01/16/20 ABDOMEN/KUB 1VIEW Indication: A right ureteral stent placed yesterday. Patient is having bladder pressure. Time of exam 7:11 PM Correlation is made with prior abdominal radiograph from 02/07/2019. A right sided double-J nephroureteral stent is noted. Overall positioning appears to be appropriate. There is a tiny calcification along the distal aspect of the stent. No other calculi along the course of the stent are identified. Bowel gas pattern is unremarkable. There is moderate stool in the right colon. IMPRESSION: 1. Right sided double J nephroureteral stent with probable small distal right ureteric calculus. No other abnormality is seen. Dictated on workstation # [id number] Dict: 01/16/201907 Trans: 01/16/201920 [facility] [id number] Interpreted by: MAKENZIE JOSEPH MD Electronically signed by: Departure Impression Primary Impression: Kidney stone on right side Additional Impression: Migration of ureteral stent Qualified Codes: T83.122A - Displacement of indwelling ureteral stent, initial encounter Disposition: HOME, SELF-CARE Condition: Improved Departure-Patient Inst. Decision time for Depature: 19:41 Referrals: DONY HERNDON MD (PCP/Family) Primary Care Physician Patient Instructions: Kidney Stones (DC) Add. Discharge Instructions: All discharge instructions reviewed with patient and/or family. Voiced understanding. Continue home medications as previously prescribed. Drink plenty of fluids. Call your urologist tomorrow for further guidance. Return for worse pain, fever, vomiting, weakness, breathing problems or other concerns as needed. JILLIAN PORTER MD Jan 16, 2020 19:38
[2020-01-16 19:43] VITALS: BP 114/60
== END 2020-01-16 19:43 | disposition home or self-care (01) ==
LOC: EDUNIT# 18:00 → ER 18:02
DX: T83.122A Displacement of indwelling ureteral stent, initial encounter (principal); N20.0 Calculus of kidney; E11.9 Type 2 diabetes mellitus without complications; Z88.0 Allergy status to penicillin; Z88.7 Allergy status to serum and vaccine; Z88.6 Allergy status to analgesic agent; Z79.4 Long term (current) use of insulin; Z90.710 Acquired absence of both cervix and uterus
CPT/HCPCS: 36415; 74018; 80053; 81000; 85025; 86141; 87077; 87088

== ENCOUNTER 2020-04-22 13:02 | Emergency (ER) | payer OTHER ==
[~2020-04-22] VITALS: Ht 182 cm; Wt 97.5 kg
[2020-04-22] MEDS ORDERED: PROMETHAZINE INJ 25 MG/ML (PHENERGAN) AMP ONE (13:39)
[2020-04-22] MEDS ORDERED: NS IV 1000 ML 1,000 ML ONE (13:39)
[2020-04-22 14:52] LABS: BASOPHILS % (AUTO) 1 % (0-10); EOSINOPHILS % (AUTO) 0 % (0-10); HEMATOCRIT 39 % (35-52); LYMPHOCYTES # (AUTO) 0.5 X 10^3 (1.0-4.0); LYMPHOCYTES % (AUTO) 44 % (12-44); MEAN CORPUSCULAR HEMOGLOBIN 30 PG (25-34); MEAN CORPUSCULAR HGB CONC 36 G/DL (32-36); MEAN CORPUSCULAR VOLUME 84 FL (80-99); MEAN PLATELET VOLUME 10.1 FL (7.4-10.4); MONOCYTES # (AUTO) 0.1 X 10^3 (0.0-1.0); MONOCYTES % (AUTO) 7 % (0-12); NEUTROPHILS # (AUTO) 0.6 X 10^3 (1.8-7.8); NEUTROPHILS % (AUTO) 48 % (42-75)
--- NOTE | 2020-04-22 14:53 | ED GI ---
General Chief Complaint: Abdominal/GI Problems Stated Complaint: COVID +;NAUSEA Nursing Triage Note: PT PRESENTS TO ED WITH COMPLAINTS OF DIZZINESS, N/V/D SINCE LAST NIGHT. PT REPORTS SH WAS TOLD SHE WAS COVID POSITIVE ON WEDNESDAY BUT REPORTS S/S SINCE WEDNESDAY. PT REPORTS LAST KNOWN FEVER WAS 100.6 THIS AM, Sepsis Screen: No Definite Risk Source of Information: Patient Exam Limitations: No Limitations History of Present Illness Date Seen by Provider: Apr 22, 2020 Time Seen by Provider: 14:51 Initial Comments Intermittent low-grade fevers to a maximum of 100.6. She tested positive for coronavirus yesterday but her symptoms actually began 7 days ago on Wednesday. She didn't get tested immediately because she assumed that she was positive as several of her family members were also positive. She denies any abdominal pain. Reports diffuse achiness. She states she is not short of breath unless she exerts herself. History of Cirrhosis. Timing/Duration: 1-2 Days Severity/Quality: Moderate Radiation: No Radiation Activities at Onset: None Associated Symptoms: Nausea/Vomiting Allergies and Home Medications Allergies Coded Allergies: Penicillins (Unverified Adverse Reaction, Severe, 01/06/16) WAS TOLD TO NEVER TAKE IT AGAIN Tetanus Vaccines and Toxoid (Unverified Adverse Reaction, Severe, ANAPHYLACTIC REACTION, COULDN'T BREATH, BODY SWOLLEN, 01/06/16) meperidine (Unverified Adverse Reaction, Severe, ANAPHYLAXIS, 01/06/16) HEART STOPPED ET STOPPED BREATHING Home Medications Cephalexin 500 Mg Tablet, 500 MG PO QID Prescribed by: WALLY JUAREZ on 02/02/19 1822 Insulin Glargine,Hum.rec.anlog 100 Unit/1 Ml Vial, 180 UNIT SQ HS, (Reported) Orphenadrine Citrate 100 Mg Tablet.er, 100 MG PO BID FOR MUSCLE SPASMS Prescribed by: GABRIELLE STEVENS on 01/28/17 1139 Patient Home Medication List Home Medication List Reviewed: Yes Review of Systems Review of Systems Constitutional: see HPI EENTM: No Symptoms Reported Respiratory: No Symptoms Reported Gastrointestinal: See HPI, Abdominal Pain, Nausea Genitourinary: No Symptoms Reported Musculoskeletal: no symptoms reported Skin: no symptoms reported Psychiatric/Neurological: No Symptoms Reported Endocrine: No Symptoms Reported Hematologic/Lymphatic: No Symptoms Reported Past Erejdhv-Mvhsep-Rqvoes Hx Patient Social History Alcohol Use: Denies Use Recreational Drug Use: No Smoking Status: Never a Smoker Recent Foreign Travel: No Contact w/Someone Who Travel: No Recent Infectious Disease Expo: No Recent Hopitalizations: No Physical Abuse: No Sexual Abuse: No Mistreated: No Fear: No Immunizations Up To Date Tetanus Booster (TDap): Unknown Seasonal Allergies Seasonal Allergies: Yes Past Medical History Surgeries: Yes (L-ARM (2 YEARS AGO) SURGERY, HEMORHOID, INCONTENENCE) Bladder Surgery, Section, Gallbladder, Hysterectomy Respiratory: Yes Asthma, Sleep Apnea, COPD Currently Using CPAP: Yes Cardiac: Yes Hypertension Neurological: Yes Headaches /Migraines 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 oz. 97.228579ig; 29.00 BMI Method:Stated General Appearance: WD/WN, no apparent distress, other (no tachypnea or respiratory distress at this time. Oxygen saturation 95% on room air.) Neck: non-tender, full range of motion Respiratory: no respiratory distress, no accessory muscle use Cardiovascular: regular rate, rhythm, no murmur Peripheral Pulses: 0 Carotid (R), 0 Carotid (L), 0 Femoral (R), 0 Femoral (L), 0 Dorsalis Pedis (R), 0 Left Dors-Pedis (L), 0 Radial Pulses (R), 0 Radial Pulses (L) Gastrointestinal: normal bowel sounds, non tender, soft Neurologic/Psychiatric: alert, normal mood/affect, oriented x 3 Skin: normal color, warm/dry Progress/Results/Core Measures Results/Orders Lab Results Laboratory Tests Test 04/22/20 13:59 Range/Units White Blood Count 1.2 *L 4.3-11.0 10^3/uL Red Blood Count 4.68 4.35-5.85 10^6/uL Hemoglobin 14.0 11.5-16.0 G/DL Hematocrit 39 35-52 % Mean Corpuscular Volume 84 80-99 FL Mean Corpuscular Hemoglobin 30 25-34 PG Mean Corpuscular Hemoglobin Concent 36 32-36 G/DL Red Cell Distribution Width 14.5 10.0-14.5 % Platelet Count 37 *L 130-400 10^3/uL Mean Platelet Volume 10.1 7.4-10.4 FL Neutrophils (%) (Auto) 48 42-75 % Lymphocytes (%) (Auto) 44 12-44 % Monocytes (%) (Auto) 7 0-12 % Eosinophils (%) (Auto) 0 0-10 % Basophils (%) (Auto) 1 0-10 % Neutrophils # (Auto) 0.6 L 1.8-7.8 X 10^3 Lymphocytes # (Auto) 0.5 L 1.0-4.0 X 10^3 Monocytes # (Auto) 0.1 0.0-1.0 X 10^3 Eosinophils # (Auto) 0.0 0.0-0.3 10^3/uL Basophils # (Auto) 0.0 0.0-0.1 10^3/uL Sodium Level 137 135-145 MMOL/L Potassium Level 3.8 3.6-5.0 MMOL/L Chloride Level 106 98-107 MMOL/L Carbon Dioxide Level 22 21-32 MMOL/L Anion Gap 9 5-14 MMOL/L Blood Urea Nitrogen 10 7-18 MG/DL Creatinine 0.89 0.60-1.30 MG/DL Estimat Glomerular Filtration Rate > 60 BUN/Creatinine Ratio 11 Glucose Level 159 H 70-105 MG/DL Calcium Level 8.2 L 8.5-10.1 MG/DL Corrected Calcium 8.6 8.5-10.1 MG/DL Total Bilirubin 2.4 H 0.1-1.0 MG/DL Alkaline Phosphatase 59 40-136 U/L C-Reactive Protein High Sensitivity 0.21 0.00-0.50 MG/DL Total Protein 6.8 6.4-8.2 GM/DL Albumin 3.5 3.2-4.5 GM/DL My Orders Orders - [facility] Cbc With Automated Diff (04/22/20 14:42) Comprehensive Metabolic Panel (04/22/20 14:42) Hs C Reactive Protein (04/22/20 14:42) Ua Culture If Indicated (04/22/20 14:42) Ed Iv/Invasive Line Start (04/22/20 14:42) Chest 1 View, Ap/Pa Only (04/22/20 14:42) Lipase (04/22/20 14:42) Ondansetron Injection (Zofran Injectio (04/22/20 15:00) Medications Given in ED Current Medications Medications Dose Ordered Sig/Yadi Route Start Time Stop Time Status Last Admin Dose Admin Promethazine HCl 25 mg STK-MED ONCE .ROUTE 04/22/20 13:39 04/22/20 13:44 DC 04/22/20 14:04 25 MG Sodium Chloride 1,000 ml @ ud STK-MED ONCE .ROUTE 04/22/20 13:39 04/22/20 13:44 DC 04/22/20 14:04 999 MLS/HR Vital Signs/I&O 04/22/20 13:37 Temp 37.2 Pulse 90 Resp 20 B/P (MAP) 130/75 (93) Pulse Ox 94 Blood Pressure Mean: 93 Departure Communication (Admissions) NAME: EARLE GARG MED REC#: [id number] PT STATUS: REG ER : 1960 PHYSICIAN: MANJIT OLEA APRN ADMIT DATE: 04/22/20/ER Draft Date of Exam:04/22/20 CHEST 1 VIEW, AP/PA ONLY INDICATION: Pain. COMPARISON: 11/14/2016. FINDINGS: Single frontal view of the chest demonstrates normal heart size and pulmonary vascularity. The lungs are well aerated and clear. No large pleural effusion or pneumothorax is seen. The visualized osseous structures show no acute abnormalities. IMPRESSION: 1. No acute cardiopulmonary process. Dictated on workstation # [id number] Dict: 04/22/20 1509 Trans: 04/22/20 1511 [id number] Interpreted by: TAH BAIN MD Electronically signed by: Impression Primary Impression: COVID-19 Additional Impression: Nausea & vomiting Disposition: 01 HOME, SELF-CARE Condition: Stable Departure-Patient Inst. Referrals: DONY HERNDON MD (PCP/Family) Primary Care Physician [facility] Apr 22, 2020 14:53
[2020-04-22 14:57] LABS: PLATELET COUNT 37 10^3/uL (130-400); WHITE BLOOD COUNT 1.2 10^3/uL (4.3-11.0)
[2020-04-22] MEDS ORDERED: ONDANSETRON 4 MG/2 ML (SDV) Z0FRAN IVP ONE (15:00)
[2020-04-22 15:06] LABS: ALBUMIN 3.5 GM/DL (3.2-4.5); CHLORIDE 106 MMOL/L (98-107); POTASSIUM 3.8 MMOL/L (3.6-5.0); SODIUM 137 MMOL/L (135-145)
[2020-04-22 15:07] LABS: CALCIUM 8.2 MG/DL (8.5-10.1)
[2020-04-22 15:08] LABS: GLUCOSE 159 MG/DL (70-105); TOTAL PROTEIN 6.8 GM/DL (6.4-8.2)
[2020-04-22 15:09] LABS: CARBON DIOXIDE 22 MMOL/L (21-32)
[2020-04-22 15:10] LABS: BILIRUBIN,TOTAL 2.4 MG/DL (0.1-1.0)
--- NOTE | 2020-04-22 15:11 | Diagnostic Imaging Report ---
INDICATION: Pain. COMPARISON: 11/14/2016. FINDINGS: Single frontal view of the chest demonstrates normal heart size and pulmonary vascularity. The lungs are well aerated and clear. No large pleural effusion or pneumothorax is seen. The visualized osseous structures show no acute abnormalities. IMPRESSION: 1. No acute cardiopulmonary process. Dictated by: Dictated on workstation # [id number]
[2020-04-22 15:12] LABS: ALKALINE PHOSPHATASE 59 U/L (40-136); CREATININE SERUM 0.89 MG/DL (0.60-1.30); GFR ESTIMATED > 60
[2020-04-22 15:13] LABS: BUN/CREATININE RATIO 11
[2020-04-22 15:15] LABS: ALANINE AMINOTRANSFERASE 23 U/L (0-55); LIPASE 85 U/L (8-78)
[2020-04-22 15:45] LABS: CLARITY,URINE CLEAR; COLOR,URINE ORANGE; GLUCOSE, URINE (UA) NEGATIVE (NEGATIVE); KETONES,URINE NEGATIVE (NEGATIVE); LEUKOCYTE ESTERASE ,URINE TRACE (NEGATIVE); NITRITE,URINE NEGATIVE (NEGATIVE); PROTEIN,URINE TRACE (NEGATIVE)
[2020-04-22 15:55] LABS: BACTERIA,URINE MODERATE /HPF; BILIRUBIN,URINE 1+ (NEGATIVE); RBC,URINE 25-50 /HPF
[2020-04-22 15:56] LABS: YEAST,URINE FEW /HPF
[2020-04-22] MEDS ORDERED: PROM25TA14 PO (16:10)
[2020-04-22] MEDS ORDERED: ONDA8TAB13 PO (16:10)
--- NOTE | 2020-04-22 16:10 | NUR ---
PT FAMILY NOTIFIED ABOUT PT PROGRESS TO DISCHARGE AND DISCHARGE INSTRUCTIONS.
[2020-04-22 16:22] VITALS: BP 122/80
== END 2020-04-22 16:22 | disposition home or self-care (01) ==
LOC: EDUNIT# 13:02 → ER 13:04
DX: U07.1 COVID-19 (principal); R11.2 Nausea with vomiting, unspecified; E11.9 Type 2 diabetes mellitus without complications; Z88.0 Allergy status to penicillin; Z88.7 Allergy status to serum and vaccine; Z88.6 Allergy status to analgesic agent; Z79.4 Long term (current) use of insulin
CPT/HCPCS: 36415; 71045; 80053; 81000; 83690; 85025; 86141; 87077; 87088

== ENCOUNTER 2020-04-25 14:36 | Emergency (ER) | payer OTHER ==
[~2020-04-25] VITALS: Ht 72 cm; Wt 97.5 kg
[~2020-04-25 14:36] MED LIST changes: +NITR-65 PO; +ONDA8TAB13 PO; +PROM25TA14 PO
[2020-04-25] MEDS ORDERED: LACTATED RINGERS 1,000 ML IV ONE (15:38)
[2020-04-25 15:44] LABS: BASOPHILS % (AUTO) 0 % (0-10); EOSINOPHILS % (AUTO) 1 % (0-10); HEMATOCRIT 41 % (35-52); HEMOGLOBIN 13.9 g/dL (11.5-16.0); LYMPHOCYTES # (AUTO) 0.5 10^3/uL (1.0-4.0); LYMPHOCYTES % (AUTO) 33 % (12-44); MEAN CORPUSCULAR HEMOGLOBIN 29 pg (25-34); MEAN CORPUSCULAR HGB CONC 34 g/dL (32-36); MEAN CORPUSCULAR VOLUME 86 fL (80-99); MEAN PLATELET VOLUME 11.7 fL (9.0-12.2); MONOCYTES # (AUTO) 0.1 10^3/uL (0.0-1.0); MONOCYTES % (AUTO) 6 % (0-12); NEUTROPHILS # (AUTO) 0.9 10^3/uL (1.8-7.8); NEUTROPHILS % (AUTO) 61 % (42-75); PLATELET COUNT 40 10^3/uL (130-400)
[2020-04-25] MEDS ORDERED: ONDANSETRON 4 MG/2 ML (SDV) Z0FRAN IVP ONE (15:45)
[2020-04-25] MEDS ORDERED: KETOROLAC 30 MG/ML VIAL IVP ONE (15:45)
[2020-04-25 15:47] LABS: WHITE BLOOD COUNT 1.4 10^3/uL (4.3-11.0)
[2020-04-25 15:57] LABS: ALBUMIN 3.5 GM/DL (3.2-4.5); POTASSIUM 3.8 MMOL/L (3.6-5.0)
[2020-04-25 15:58] LABS: CALCIUM 8.3 MG/DL (8.5-10.1)
[2020-04-25 16:00] LABS: TOTAL PROTEIN 6.7 GM/DL (6.4-8.2)
[2020-04-25 16:01] LABS: BILIRUBIN,TOTAL 2.6 MG/DL (0.1-1.0)
[2020-04-25 16:03] LABS: CREATININE SERUM 1.07 MG/DL (0.60-1.30)
[2020-04-25 16:06] LABS: MAGNESIUM 1.7 MG/DL (1.6-2.4)
[2020-04-25] MEDS ORDERED: LACTATED RINGERS 1,000 ML IV SCH (16:30)
[2020-04-25] MEDS ORDERED: PROMETHAZINE INJ 25 MG/ML (PHENERGAN) AMP IVP ONE (16:30)
[2020-04-25] MEDS ORDERED: BENZONATATE 100 MG (TESSALON) CAPSULE PO ONE (16:30)
[2020-04-25] MEDS ORDERED: PROM25TA14 PO (17:01)
[2020-04-25] MEDS ORDERED: BENZ100C18 PO (17:01)
[2020-04-25] MEDS ORDERED: ONDA4TAB11 SL (17:01)
--- NOTE | 2020-04-25 17:01 | ED General ---
General Chief Complaint: General Problems/Pain Stated Complaint: N/V/D, COVID POS Nursing Triage Note: PT ARRIVES TO EMS BY PRIVATE VEHICLE WITH C/O N/V/ HEADACHE AND DIZZINESS. PT STATES SHE IS COVID+ OF LAST WEDNESDAY. PT ALSO FELL IN WAITING ROOM TODAY WHILE WALKING IN DUE TO DIZZINESS Nursing Sepsis Screen: No Definite Risk Source of Information: Patient Exam Limitations: No Limitations History of Present Illness Date Seen by Provider: Apr 25, 2020 Time Seen by Provider: 15:30 Initial Comments This 59-year-old woman who has been ill with COVID-19 for about 10 days presents to the emergency room with primary complaint of nausea and vomiting. She also has dizziness, headache, myalgias, cough, and chest pain with cough. She has had a couple of falls due to dizziness when walking. She denies any injury. Allergies and Home Medications Allergies Coded Allergies: Penicillins (Unverified Adverse Reaction, Severe, 01/06/16) WAS TOLD TO NEVER TAKE IT AGAIN Tetanus Vaccines and Toxoid (Unverified Adverse Reaction, Severe, ANAPHYLACTIC REACTION, COULDN'T BREATH, BODY SWOLLEN, 01/06/16) meperidine (Unverified Adverse Reaction, Severe, ANAPHYLAXIS, 01/06/16) HEART STOPPED ET STOPPED BREATHING Home Medications Benzonatate 100 Mg Capsule, 200 MG PO TID PRN for COUGH Prescribed by: AMY GUEVARA on 04/25/20 1701 Cephalexin 500 Mg Tablet, 500 MG PO QID Prescribed by: WALLY JUAREZ on 02/02/19 1822 Insulin Glargine,Hum.rec.anlog 100 Unit/1 Ml Vial, 180 UNIT SQ HS, (Reported) Nitrofurantoin Monohyd/M-Cryst 100 Mg Capsule, 1 TAB PO BID, (Reported) Ondansetron 8 Mg Tab.rapdis, 8 MG PO Q6H PRN for NAUSEA/VOMITING Prescribed by: MANJIT OLEA on 04/22/20 1610 Ondansetron 4 Mg Tab.rapdis, 4 MG SL Q4H PRN for NAUSEA/VOMITING Prescribed by: AMY GUEVARA on 04/25/20 1701 Orphenadrine Citrate 100 Mg Tablet.er, 100 MG PO BID FOR MUSCLE SPASMS Prescribed by: GABRIELLE STEVENS on 01/28/17 1139 Promethazine HCl 25 Mg Tablet, 25 MG PO Q6H PRN for NAUSEA/VOMITING Prescribed by: MANJIT OLEA on 04/22/20 1610 Promethazine HCl 25 Mg Tablet, 25 MG PO Q8H PRN for NAUSEA/VOMITING-2ND LINE Prescribed by: AMY GUEVARA on 04/25/20 1701 Patient Home Medication List Home Medication List Reviewed: Yes Review of Systems Review of Systems Constitutional: see HPI EENTM: no symptoms reported Respiratory: see HPI Cardiovascular: no symptoms reported Gastrointestinal: see HPI Genitourinary: no symptoms reported : No Musculoskeletal: see HPI Skin: no symptoms reported Psychiatric/Neurological: See HPI Hematologic/Lymphatic: No Symptoms Reported Immunological/Allergic: no symptoms reported Past Tfshnhb-Hfbwym-Ewdvcs Hx Past Med/Social Hx: Reviewed Nursing Past Med/Soc Hx Patient Social History Alcohol Use: Denies Use Recreational Drug Use: No 2nd Hand Smoke Exposure: No Recent Foreign Travel: No Contact w/Someone Who Travel: No Recent Infectious Disease Expo: Yes Recent Hopitalizations: No Immunizations Up To Date Tetanus Booster (TDap): Unknown Date of Influenza Vaccine: May 02, 2019 Seasonal Allergies Seasonal Allergies: Yes Past Medical History Surgeries: Yes (L-ARM (2 YEARS AGO) SURGERY, HEMORHOID, INCONTENENCE) Bladder Surgery, Section, Gallbladder, Hysterectomy Respiratory: Yes Asthma, Sleep Apnea, COPD Currently Using CPAP: Yes Cardiac: Yes Hypertension Neurological: Yes Headaches /Migraines 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 Genitourinary: Yes Kidney Infection Gastrointestinal: Yes Gastroesophageal Reflux, Liver Disease/Jaundice, Hemorrhoids, Cirrhosis Musculoskeletal: Yes Arthritis Endocrine: Yes Diabetes, Insulin dep Double Vision Cancer: No Psychosocial: Yes ADD/ADHD, Anxiety, PTSD, Bipolar, Depression Integumentary: Yes (psoriasis) Psoriasis Blood Disorders: No Adverse Reaction/Blood Tranf: No Physical Exam Vital Signs Vital Signs - First Documented 04/25/20 15:08 Temp 38.3 Pulse 83 Resp 16 B/P (MAP) 103/57 (72) Pulse Ox 94 O2 Delivery Room Air Capillary Refill : Less Than 3 Seconds Height, Weight, BMI Height: 6'0" Weight: 214lbs. oz. [id number]; 188.00 BMI Method:Stated General Appearance: No Apparent Distress, Mild Distress (generally ill- appearing) HEENT: PERRL/EOMI, Normal ENT Inspection, Other (oropharynx dry) Neck: Normal Inspection Respiratory: Lungs Clear, Normal Breath Sounds, No Accessory Muscle Use Cardiovascular: Regular Rate, Rhythm, No Edema, No Murmur, Normal Peripheral Pulses Gastrointestinal: Normal Bowel Sounds, Soft, Tenderness (generalized) Extremity: Normal Inspection, No Pedal Edema Neurologic/Psychiatric: Alert, Oriented x3, No Motor/Sensory Deficits, Normal Mood/Affect, floor director II-XII Norm as Tested Skin: Normal Color, Warm/Dry, Rash (spider telangiectasias) Progress/Results/Core Measures Suspected Sepsis Recent Fever Within 48 Hours: Yes Infection Criteria Present: Documented Infection New/Unexplained Altered Menta: No Sepsis Screen: No Definite Risk SIRS Temperature: Pulse: 83 Respiratory Rate: 16 Laboratory Tests 04/25/20 15:23: White Blood Count 1.4*L Blood Pressure 103 /57 Mean: 72 Laboratory Tests 04/25/20 15:23: Creatinine 1.07, Platelet Count 40L, Total Bilirubin 2.6H Results/Orders Lab Results Laboratory Tests Test 04/25/20 15:23 Range/Units White Blood Count 1.4 *L 4.3-11.0 10^3/uL Red Blood Count 4.73 3.80-5.11 10^6/uL Hemoglobin 13.9 11.5-16.0 g/dL Hematocrit 41 35-52 % Mean Corpuscular Volume 86 80-99 fL Mean Corpuscular Hemoglobin 29 25-34 pg Mean Corpuscular Hemoglobin Concent 34 32-36 g/dL Red Cell Distribution Width 13.7 10.0-14.5 % Platelet Count 40 L 130-400 10^3/uL Mean Platelet Volume 11.7 9.0-12.2 fL Immature Granulocyte % (Auto) 0 % Neutrophils (%) (Auto) 61 42-75 % Lymphocytes (%) (Auto) 33 12-44 % Monocytes (%) (Auto) 6 0-12 % Eosinophils (%) (Auto) 1 0-10 % Basophils (%) (Auto) 0 0-10 % Neutrophils # (Auto) 0.9 L 1.8-7.8 10^3/uL Lymphocytes # (Auto) 0.5 L 1.0-4.0 10^3/uL Monocytes # (Auto) 0.1 0.0-1.0 10^3/uL Eosinophils # (Auto) 0.0 0.0-0.3 10^3/uL Basophils # (Auto) 0.0 0.0-0.1 10^3/uL Immature Granulocyte # (Auto) 0.0 0.0-0.1 10^3/uL Sodium Level 137 135-145 MMOL/L Potassium Level 3.8 3.6-5.0 MMOL/L Chloride Level 105 98-107 MMOL/L Carbon Dioxide Level 23 21-32 MMOL/L Anion Gap 9 5-14 MMOL/L Blood Urea Nitrogen 11 7-18 MG/DL Creatinine 1.07 0.60-1.30 MG/DL Estimat Glomerular Filtration Rate 53 BUN/Creatinine Ratio 10 Glucose Level 137 H 70-105 MG/DL Calcium Level 8.3 L 8.5-10.1 MG/DL Corrected Calcium 8.7 8.5-10.1 MG/DL Magnesium Level 1.7 1.6-2.4 MG/DL Total Bilirubin 2.6 H 0.1-1.0 MG/DL Aspartate Amino Transf (AST/SGOT) 42 H 5-34 U/L Alanine Aminotransferase (ALT/SGPT) 22 0-55 U/L Alkaline Phosphatase 61 40-136 U/L Total Creatine Kinase 136 29-168 U/L Total Protein 6.7 6.4-8.2 GM/DL Albumin 3.5 3.2-4.5 GM/DL My Orders Orders - AMY SHERIFF MD Cbc With Automated Diff (04/25/20 15:38) Comprehensive Metabolic Panel (04/25/20 15:38) Creatine Kinase (04/25/20 15:38) Magnesium (04/25/20 15:38) Ed Iv/Invasive Line Start (04/25/20 15:38) Lactated Ringers (Lr 1000 Ml Iv Solution (04/25/20 15:38) Ketorolac Injection (Toradol Injection) (04/25/20 15:45) Ondansetron Injection (Zofran Injectio (04/25/20 15:45) Lactated Ringers (Lr 1000 Ml Iv Solution (04/25/20 16:30) Promethazine Injection (Phenergan Injec (04/25/20 16:30) Benzonatate Capsule (Tessalon Perles) (04/25/20 16:30) Medications Given in ED Current Medications Medications Dose Ordered Sig/Yadi Route Start Time Stop Time Status Last Admin Dose Admin Benzonatate 200 mg ONCE ONCE PO 04/25/20 16:30 04/25/20 16:31 DC 04/25/20 16:32 200 MG Ketorolac Tromethamine 15 mg ONCE ONCE IVP 04/25/20 15:45 04/25/20 15:46 DC 04/25/20 15:45 15 MG Lactated Ringer's 1,000 ml @ 0 mls/hr Q0M ONCE IV 04/25/20 15:38 04/25/20 15:40 DC 04/25/20 15:45 1,000 MLS/HR Ondansetron HCl 8 mg ONCE ONCE IVP 04/25/20 15:45 04/25/20 15:46 DC 04/25/20 15:43 8 MG Promethazine HCl 12.5 mg ONCE ONCE IVP 04/25/20 16:30 04/25/20 16:31 DC 04/25/20 16:32 12.5 MG Vital Signs/I&O 04/25/20 04/25/20 15:08 17:24 Temp 38.3 37.5 Pulse 83 76 Resp 16 17 B/P (MAP) 103/57 (72) 121/66 Pulse Ox 94 93 O2 Delivery Room Air Capillary Refill : Less Than 3 Seconds Blood Pressure Mean: 72 Progress Note : Progress Note Patient was treated with a liter of LR, Toradol, and Zofran. She had some refractory nausea and cough which was treated with Phenergan and Tessalon Perles. A second liter of LR was also ordered. Patient was ultimately discharged with prescriptions after treatment. Departure Impression Primary Impression: COVID-19 Additional Impressions: Nausea and vomiting Qualified Codes: R11.2 - Nausea with vomiting, unspecified Myalgia Cough Leukopenia Qualified Codes: D72.819 - Decreased white blood cell count, unspecified Disposition: 01 HOME, SELF-CARE Condition: Improved Departure-Patient Inst. Decision time for Depature: 16:30 Referrals: DONY HERNDON MD (PCP/Family) Primary Care Physician Patient Instructions: Coronavirus Disease 2019 (COVID-19) (DC) Add. Discharge Instructions: Drink plenty of clear liquids. Uses Zofran (ondansetron) as your primary nausea medication. Add Phenergan (promethazine) for nausea and vomiting not controlled by Zofran. You may use ibuprofen up to 400 mg every 6 hours as needed for pain or fever. Use Tessalon Perles as directed for cough suppression. Contact your primary care provider or return to care if you have worsening symptoms despite following these measures. Continue to quarantine according to your health department directions. All discharge instructions reviewed with patient and/or family. Voiced understanding. Scripts Benzonatate (TESSALON PERLES) 100 Mg Capsule 200 MG PO TID PRN for COUGH, #20 CAP Prov: AMY SHERIFF MD 04/25/20 Promethazine HCl (Promethazine Tablet) 25 Mg Tablet 25 MG PO Q8H PRN for NAUSEA/VOMITING-2ND LINE, #10 TAB Prov: AMY SHERIFF MD 04/25/20 Ondansetron (Ondansetron Odt) 4 Mg Tab.rapdis 4 MG SL Q4H PRN for NAUSEA/VOMITING, #10 TAB Prov: AMY SHERIFF MD 04/25/20 Copy Copies To 1: DONY HERNDON MD, JOSHUA T MD Apr 25, 2020 17:01
[2020-04-25 17:24] VITALS: BP 121/66
== END 2020-04-25 17:34 | disposition home or self-care (01) ==
LOC: EDUNIT# 14:36 → ER 14:38
DX: U07.1 COVID-19 (principal); R11.2 Nausea with vomiting, unspecified; M79.18 Myalgia, other site; D72.819 Decreased white blood cell count, unspecified; I10 Essential (primary) hypertension; E11.9 Type 2 diabetes mellitus without complications; Z88.0 Allergy status to penicillin; Z88.7 Allergy status to serum and vaccine; Z88.5 Allergy status to narcotic agent; Z79.4 Long term (current) use of insulin
CPT/HCPCS: 36415; 80053; 82550; 83735; 85025; 99284